=== PATIENT | female | born 1960 | race Caucasian/White ===

== ENCOUNTER → 2023-12-13 | Outpatient (CLI) | payer BC ==
[2023-12-13 15:29] LABS: African American GFR (CKD) >90 (>60 ml/min/1.73 sqM); Blood Urea Nitrogen 22 mg/dL (7-17); Non-African American GFR(CKD) >90 (>60 ml/min/1.73 sqM)
--- NOTE | 2023-12-13 18:09 | CT ---
EXAMINATION TYPE: CT abdomen pelvis w con CT DLP: 1536 mGycm, Automated exposure control for dose reduction was used. DATE OF EXAM: 12/13/2023 4:53 PM COMPARISON: None CLINICAL INDICATION: Female, 63 years old with history of R10.13 EPIGASTRIC PAIN; epigastric pain TECHNIQUE: Axial CT abdomen pelvis w con;Sagittal and coronal reformats were created on a separate w orkstation. Contrast used:100 mL of Isovue 300 with IV Contrast, (none if empty) Oral contrast used: with Oral Contrast (none if empty) FINDINGS: LOWER CHEST: Unremarkable ABDOMEN LIVER: Diffusely hypoattenuating parenchyma. GALLBLADDER AND BILE DUCTS: The gallbladder is surgically absent. PANCREAS: Unremarkable. SPLEEN: Unremarkable. ADRENAL GLANDS: Unremarkable. KIDNEYS AND URETERS: No evidence of hydronephrosis or renal calculus. The ureters are unremarkable. Peripelvic renal cyst is present left greater than right. PELVIS BLADDER: Unremarkable REPRODUCTIVE: Unremarkable. ABDOMEN & PELVIS STOMACH AND BOWEL: No evidence of bowel obstruction. Gastric lap band is present with flattened orien tation. PERITONEUM/RETROPERITONEUM: No evidence of pneumoperitoneum or free fluid. VASCULATURE: No evidence of aortic aneurysm. MUSCULOSKELETAL: No acute osseous abnormalities LYMPH NODES: No gross evidence for lymphadenopathy. SOFT TISSUE/ABDOMINAL WALL: Unremarkable IMPRESSION: 1. Gastric lap band has a horizontal position which is abnormal. Clinical correlation and surgical c onsultation recommended. 2. Hepatic steatosis. [facility] Claude Gregg, , 12/13/2023 6:06 PM
== END | disposition home or self-care (01) ==
LOC: RADCTMAIN 14:51
PROVIDERS: ATTEND Internal Medicine Gastroenterology
DX: K76.0 Fatty (change of) liver, not elsewhere classified (principal)
CPT/HCPCS: 36415; 74177; 82565; 84520

== ENCOUNTER → 2023-12-25 | Outpatient (CLI) | payer BC ==
[2023-12-25 14:41] VITALS: BP 118/84; PULSE 84; TEMP 98; BMI 35.4
--- NOTE | 2023-12-25 17:09 | P.BASOAP ---
Subjective Progress Note Date: 12/25/23 Principal diagnosis: Vomiting 63-year-old female known to our service from previous Lap-Band. Apparently over the last several years she has had intermittent epigastric pain that comes and goes. Symptoms have been worsening since October. Now having dysphagia to solids. Says that usually food exacerbates the epigastric pain. Says she has been following with GI. Says she had a CAT scan performed recently which was reviewed. The CAT scan shows somewhat horizontal nature of her Lap-Band device. Band appears slightly tight on that study with some increased stomach above the band site. No definite prolapse or erosion present. Objective - Vital Signs Vital signs: Vital Signs Temp 98 F 12/25/23 14:36 Pulse 84 12/25/23 14:36 Resp BP 118/84 12/25/23 14:36 Pulse Ox FiO2 Intake & Output 12/24/23 12/25/23 12/25/23 18:59 06:59 18:59 Weight 90.718 kg - Exam Abdomen: Soft, nontender, nondistended Assessment/Plan (1) Morbid obesity Narrative/Plan: Patient with dysphagia and pain after eating solids. Band appears tight. Will empty the patient's band at this time. She is unsure how much is in there. Patient is scheduled for an upper endoscopy on 01/15 with GI. Would recommend she follow through with that. After that study patient will contact me if she would like to have fluid added back or if she would like to consider band removal. The patient's lap band port was palpated. The site was aseptically prepped. The Sánchez needle was advanced into the port. A total of 3 ml of fluid was removed. Band is now empty. Pressure was held and a sterile dressing was applied. Plan: Date: 12/25/23 Initial Weight: Initial BMI: Current Weight: 90.718 kg Current BMI: 35.4 Type of Surgery: Total Volume in Band: 0 Previous Volume: Volume Removed: 3 Volume Added: Band Size:
== END ==
LOC: BARWHC3 13:53
PROVIDERS: ATTEND Surgery
CPT/HCPCS: 43999

== ENCOUNTER 2024-01-16 06:47 | Day surgery (SDC) | payer BC, OTHER ==
[2024-01-14 12:46] VITALS: BMI 35.4
[2024-01-16 07:12] VITALS: RESP 16; TEMP 97
[2024-01-16 07:18] LABS: Glucose,Whole Blood 180 mg/dL (70-110)
[2024-01-16] MEDS: IV FLUID CONTINUATION 1,000 ML IV ONE (07:18)
[2024-01-16] MEDS: LACTATED RINGERS 1,000 ML IV SCH (07:18)
[2024-01-16] MEDS ORDERED: PROPOFOL 10 MG/ML 20 ML VIAL IV ONE (07:54)
[2024-01-16] MEDS ORDERED: LIDOCAINE 1% INJ 10MG/ML (20 ML MDV) ONE (07:54)
--- NOTE | 2024-01-16 08:25 | P.PCN ---
Date of Procedure: 01/16/24 Procedure(s) Performed: BRIEF HISTORY: Patient is a 63-year-old, pleasant, white female scheduled for an upper endoscopy as a part of evaluation of chronic persistent epigastric pain of several years duration. Her symptoms are progressively getting worse lately. Recently started on Protonix as well as Carafate with some help. She has history of gastric lap band surgery several years ago.. PROCEDURE PERFORMED: Esophagogastroduodenoscopy with biopsy. PREOPERATIVE DIAGNOSIS: Epigastric pain. IV sedation per anesthesia. PROCEDURE: After informed consent was obtained, the patient was brought into the endoscopy unit. IV sedation was administered by Anesthesia under continuous monitoring. Initially the Olympus GIF-140 video endoscope was inserted into the mouth. Esophagus intubated without any difficulty. It was gradually advanced into the stomach and duodenum and carefully examined. The bulb and the second part of the duodenum appeared normal. The scope at this time was withdrawn to the stomach, adequately insufflated with air, and upon careful examination, mucosa of the antrum, and mild gastritis and biopsies were done from this area. Body, cardia and the fundus appeared normal. There was evidence of previous lap band noted which appear to be in normal position. The scope was then withdrawn into the esophagus. The GE junction was located at 39 cm from the incisors. The esophagus appeared normal. There were no erosions or ulcerations seen, biopsies were done from the distal esophagus and the patient tolerated the procedure well. IMPRESSION: 1. Mild antral gastritis. 2. Normal-appearing gastric lap band 3. No evidence of esophagitis or peptic ulcer disease. RECOMMENDATIONS: The findings of this examination were discussed with the patient as well as her family. She was advised to follow-up with the biopsy results. Continue with Protonix 40 mg daily and Carafate as needed..
[2024-01-16 09:02] VITALS: BP 124/75; PULSE 74
== END 2024-01-16 09:15 | disposition home or self-care (01) ==
LOC: ORWHC2ENDO 06:47
PROVIDERS: ATTEND Internal Medicine Gastroenterology
CPT/HCPCS: 43239; 88305

== ENCOUNTER 2024-02-18 10:03 | Day surgery (SDC) | payer BC ==
[~2024-02-18 10:03] MED LIST: DEXAMETHASONE SOD PHOSPHATE 4 MG/ML 1 ML VIAL IV ONE; LIDOCAINE 1% (10MG/ML) FOR IV START INTRADERMA PRN; droPERidol 5 MG/2 ML VIAL IVP ONE
[2024-02-18] MEDS: IV FLUID CONTINUATION 1,000 ML IV ONE (10:40)
[2024-02-18 10:46] VITALS: TEMP 97.1
[2024-02-18 10:46] LABS: Glucose,Whole Blood 260 mg/dL (70-110)
[2024-02-18] MEDS: INSULIN ASPART (NovoLOG) 100 UNIT/ML VIAL SQ ONE (11:04)
[2024-02-18] MEDS: LACTATED RINGERS 1,000 ML IV SCH (11:05)
[2024-02-18] MEDS: ONDANSETRON 4 MG/2 ML VIAL IVP ONE (11:05)
[2024-02-18] MEDS: SCOPOLAMINE 1 MG/72 HR PATCH TRANSDERM STA (11:42)
[2024-02-18] MEDS: FAMOTIDINE 20 MG/2 ML VIAL IV STA (11:43)
--- NOTE | 2024-02-18 12:31 | P.GSHP ---
History of Present Illness H&P Date: 02/18/24 Chief Complaint: Dysphagia, band intolerance 63-year-old female known to our service. Last seen in the bariatric center 12/24. Patient has had intermittent epigastric pain associated with intermittent vomiting. Patient had previous studies suggesting possible prolapse of the band. At the time of the last visit the patient's band was emptied. Her symptoms did improve but not go away completely. She remains interested in band removal. Past Medical History Past Medical History: Diabetes Mellitus, GERD/Reflux, Hyperlipidemia, Hypertension, Musculoskeletal Disorder, Osteoarthritis (OA), Sleep Apnea/CPAP/BIPAP Additional Past Medical History / Comment(s): Recent upper stomach pain. hx MIGRAINES, HERNIATED DISCS WITH BACK PAIN. Type II diabetic. "signs of anemia". fatty liver disease. uses CPAP. "Slightly enlarged Thyroid that they're watching" History of Any Multi-Drug Resistant Organisms: None Reported Past Surgical History: Bariatric Surgery, Breast Surgery, Cholecystectomy, Hysterectomy, Orthopedic Surgery Additional Past Surgical History / Comment(s): BREAST REDUCTION, LAP BAND, SEPTOPLASTY, RT ELBOW SX, BRENDA CATARACT. Deviated septal repair. Colonoscopy Past Anesthesia/Blood Transfusion Reactions: Motion Sickness, Postoperative Nausea & Vomiting (PONV) Additional Past Anesthesia/Blood Transfusion Reaction / Comment(s): No hx of blood transfusion to date. Smoking Status: Former smoker - Past Family History Mother Family Medical History: Cancer Additional Family Medical History / Comment(s): STOMACH AND COLON CA Brother(s) Family Medical History: Diabetes Mellitus Father Family Medical History: Coronary Artery Disease (CAD), Diabetes Mellitus Medications and Allergies Home Medications Medication Instructions Recorded Confirmed Type Ascorbic Acid [Vitamin C] 500 mg PO QAM 10/01/14 02/18/24 History Aspirin EC [Ecotrin] 81 mg PO QAM 10/01/14 02/11/24 History Atorvastatin [Lipitor] 10 mg PO HS 10/01/14 02/18/24 History Loratadine-Pseudoeph 10-240 mg 1 each PO DAILY 10/01/14 02/18/24 History [Claritin-D 24 Hr] Losartan/Hydrochlorothiazide 1 each PO QAM 10/01/14 02/18/24 History [Hyzaar 50-12.5 Tablet] Vitamin D 200 Mg 200 mg PO QAM 10/01/14 02/18/24 History metFORMIN HCL [Glucophage] 1,000 mg PO BID 10/01/14 02/18/24 History Pantoprazole [Protonix] 40 mg PO BID 12/25/23 02/18/24 History Sucralfate [Carafate] 1 gram PO QID 12/25/23 02/18/24 History Ferrous Sulfate [Iron] 325 mg PO Q48H 01/14/24 02/18/24 History Tirzepatide [Mounjaro] 5 mg SQ MO 01/14/24 02/11/24 History Zinc(Unknown Dose) 1 dose PO QAM 01/14/24 02/18/24 History glipiZIDE [Glucotrol] 5 mg PO AC-BID 01/14/24 02/18/24 History sitaGLIPtin [Januvia] 100 mg PO BID 01/14/24 02/18/24 History Allergies Allergy/AdvReac Type Severity Reaction Status Date / Time ADHESIVE TAPE AdvReac Unknown Rash/Hives Uncoded 02/18/24 10:21 Surgical - Exam Vital Signs Temp Pulse Resp BP Pulse Ox 97.1 F L 85 18 145/79 96 02/18/24 10:40 02/18/24 10:40 02/18/24 10:40 02/18/24 10:40 02/18/24 10:40 Physical exam: General: Well-developed, well-nourished HEENT: Normocephalic, sclerae nonicteric Abdomen: Nontender, nondistended Extremities: No edema Neuro: Alert and oriented Results - Labs Abnormal Lab Results - Last 24 Hours (Table) 02/18/24 Range/Units 10:41 POC Glucose (mg/dL) 260 H (70-110) mg/dL Assessment and Plan (1) Morbid obesity Narrative/Plan: 63-year-old female with Lap-Band intolerance. Will proceed with laparoscopic Lap-Band removal, possible open. The risks of bleeding, infection, stenosis, stricture, leak, abscess, fistula formation, peritonitis, reflux, vomiting, conversion to an open procedure, DE, PE, DVT, and were discussed. The patient understands and wishes to proceed. Current Visit: No Status: Acute Code(s): E66.01 - MORBID (SEVERE) OBESITY DUE TO EXCESS CALORIES SNOMED Code(s): 072222050
[2024-02-18] MEDS ORDERED: fentaNYL (PF) 50 MCG/ML 2 ML AMP ONE (13:15)
[2024-02-18] MEDS ORDERED: MIDAZOLAM 2 MG/2 ML VIAL ONE (13:15)
[2024-02-18] MEDS ORDERED: GLYCOPYRROLATE 0.2 MG/ML 2 ML VIAL ONE (13:15)
[2024-02-18] MEDS ORDERED: PROPOFOL 10 MG/ML 20 ML VIAL IV ONE (13:15)
[2024-02-18] MEDS ORDERED: ROCURONIUM 10 MG/ML (5 ML VIAL) IV ONE (13:15)
[2024-02-18] MEDS ORDERED: SUCCINYLCHOLINE CHLORIDE 200 MG/10 ML VIAL IV ONE (13:15)
[2024-02-18] MEDS ORDERED: NEOSTIGMINE 1 MG/ML 10 ML VIAL ONE (13:15)
[2024-02-18] MEDS ORDERED: LIDOCAINE 1% INJ 10MG/ML (20 ML MDV) ONE (13:15)
[2024-02-18] MEDS: LACTATED RINGERS 1,000 ML IV ONE (13:38)
[2024-02-18] MEDS: BUPIVACAINE (PF) 0.25% 30 ML VIAL SQ ONE ×2 (13:45)
[2024-02-18] MEDS ORDERED: NALOXONE 0.4 MG/ML 1 ML VIAL IV PRN (14:21)
[2024-02-18] MEDS ORDERED: traMADol 50 MG TAB PO PRN (14:21)
--- NOTE | 2024-02-18 14:24 | P.OP ---
Date of Procedure: 02/18/24 Procedure(s) Performed: PREOPERATIVE DIAGNOSIS: Band intolerance/abdominal pain POSTOPERATIVE DIAGNOSIS: Same PROCEDURE: Laparoscopic lap band removal SURGEON: Maggie EBL: Minimal ANESTHESIA: General COMPLICATIONS: None OPERATIVE PROCEDURE: The patient was brought and placed on the operating room table in the supine position. The patient was placed under general anesthesia at that time. The patient was then placed in lithotomy. The abdomen was prepped and draped in the usual sterile fashion. The previous port incision was localized and then incised using a scalpel. The port was easily excised using electrocautery. Entrance into the peritoneal cavity occurred using a 5 mm optical trocar through the old trocar entrance site. Insufflation took place to 15 mmHg. A right subxiphoid 5 mm trocar was placed. This was then removed and the medium Yadira hook was used to elevate the left lobe of the liver anteriorly. An additional 5 mm trocar was placed under direct visualization in the left lateral upper quadrant. The original 5 mm trocar was switched to a 15 mm trocar. A additional 5 mm trocar was placed in the right upper quadrant under direct dilatation. There were adhesions to the band in the buccal that were lysed using both the LigaSure and electrocautery. The band was then cut using the laparoscopic angelique. The band was then removed easily in 2 portions through the 15 mm trocar site. The stomach itself was inspected and revealed no evidence of erosion or prolapse. The trochars were removed. The fascia at the 15 mm site was closed using a [id number] 0 Vicryl stitch. The subcutaneous tissues at the port site was closed using a 3-0 Vicryl suture. The skin at all 4 incision sites were closed using 4-0 Monocryl sutures. Steri-Strips and sterile dressings were then applied. DISPOSITION: Stable to recovery room
[2024-02-18] MEDS: HYDROmorphone 0.5 MG/0.5 ML SYRINGE IVP PRN (14:50)
[2024-02-18 15:11] VITALS: RESP 16
[2024-02-18 15:22] LABS: Glucose,Whole Blood 169 mg/dL (70-110)
[2024-02-18 16:44] VITALS: BP 140/76; PULSE 86
== END 2024-02-18 17:09 | disposition home or self-care (01) ==
LOC: OR 10:03
PROVIDERS: ATTEND Surgery
DX: E66.01 Morbid (severe) obesity due to excess calories (principal); T85.848A Pain due to other internal prosthetic devices, implants and grafts, initial encounter; R10.9 Unspecified abdominal pain; R13.10 Dysphagia, unspecified; K21.9 Gastro-esophageal reflux disease without esophagitis; E78.5 Hyperlipidemia, unspecified; I10 Essential (primary) hypertension; E11.3293 Type 2 diabetes mellitus with mild nonproliferative diabetic retinopathy without macular edema, bilateral; K76.0 Fatty (change of) liver, not elsewhere classified; G43.909 Migraine, unspecified, not intractable, without status migrainosus; G47.00 Insomnia, unspecified; D50.9 Iron deficiency anemia, unspecified; E11.29 Type 2 diabetes mellitus with other diabetic kidney complication; E04.2 Nontoxic multinodular goiter; G47.33 Obstructive sleep apnea (adult) (pediatric); M19.90 Unspecified osteoarthritis, unspecified site; Z68.37 Body mass index [BMI] 37.0-37.9, adult; Z90.49 Acquired absence of other specified parts of digestive tract; Z90.710 Acquired absence of both cervix and uterus; Z87.891 Personal history of nicotine dependence; Z98.890 Other specified postprocedural states; Z79.899 Other long term (current) drug therapy; Z79.84 Long term (current) use of oral hypoglycemic drugs; Z79.82 Long term (current) use of aspirin; Z91.09 Other allergy status, other than to drugs and biological substances
CPT/HCPCS: 43772; J2250; J0330; J2710; J0690; J2405; J2003; J3010; J3490; J2704; J1171; J0665; J1596

== ENCOUNTER → 2024-03-04 | Outpatient (CLI) | payer BC ==
[2024-03-04 13:34] VITALS: BP 124/81; PULSE 108; RESP 16; BMI 34.9
--- NOTE | 2024-03-04 13:56 | P.BASOAP ---
Subjective Progress Note Date: 03/04/24 Principal diagnosis: Postop Patient returns after Lap-Band removal on 02/17. Doing well. Says the pain she was having before surgery is now gone. She has some mild discomfort left upper quadrant 5 mm trocar site incision. No fevers. No nausea vomiting. No GERD. Objective - Vital Signs Vital signs: Vital Signs Temp Pulse 108 H 03/04/24 13:31 Resp 16 03/04/24 13:31 BP 124/81 03/04/24 13:31 Pulse Ox FiO2 Intake & Output 03/03/24 03/04/24 03/04/24 18:59 06:59 18:59 Weight 89.358 kg - Exam Abdomen: Soft, nondistended, incisions clean and dry, minimal tenderness Assessment/Plan (1) Morbid obesity Narrative/Plan: Patient doing well after laparoscopic band removal. Continue monitoring weight and participating in both dietary and exercise regimens. Monitor incision sites. Follow-up as needed. Plan: Date: 03/04/24 Initial Weight: 90.718 kg Initial BMI: 35.4 Current Weight: 89.358 kg Current BMI: 34.9 Type of Surgery: Total Volume in Band: 0 Previous Volume: Volume Removed: Volume Added: Band Size:
== END ==
LOC: BARWHC3 13:21
PROVIDERS: ATTEND Surgery
DX: E66.01 Morbid (severe) obesity due to excess calories (principal); Z68.34 Body mass index [BMI] 34.0-34.9, adult; Z91.048 Other nonmedicinal substance allergy status; Z87.891 Personal history of nicotine dependence
CPT/HCPCS: 99211